=== PATIENT | female | born 1985 | race Caucasian/White ===

== ENCOUNTER → 2020-08-08 14:47 | Outpatient (BNVA) | payer OTHER, SELFPAY | PROVIDERS: PCP Internal Medicine; Visit Provider Advanced Practice Midwife | DX: Z76.89 Persons encountering health services in other specified circumstances (principal) ==

== ENCOUNTER 2020-08-24 15:16 | Outpatient (REF) | payer OTHER, SELFPAY ==
[2020-08-25 11:49] LABS: CT PCR NOT DETECTED (Not Detect.); NG PCR NOT DETECTED (Not Detect.)
== END 2020-08-24 15:17 | disposition home or self-care (01) ==
LOC: HO.LAB 15:16
PROVIDERS: Visit Provider Advanced Practice Midwife
DX: Z20.2 Contact with and (suspected) exposure to infections with a predominantly sexual mode of transmission (principal)
CPT/HCPCS: 87491; 87591

== ENCOUNTER → 2020-09-26 15:16 | Outpatient (BNVA) | payer OTHER, SELFPAY | PROVIDERS: Visit Provider Advanced Practice Midwife | DX: Z76.89 Persons encountering health services in other specified circumstances (principal) ==

== ENCOUNTER → 2021-01-25 15:06 | Outpatient (BNVA) | payer OTHER, SELFPAY | PROVIDERS: PCP Internal Medicine; Visit Provider Advanced Practice Midwife ==

== ENCOUNTER 2021-02-03 10:09 | Outpatient (REF) | payer OTHER, SELFPAY ==
[2021-02-03 11:19] LABS: MANUAL DIFF FLAG NO
[2021-02-03 11:40] LABS: Basophils Percent Auto 0.4 % (0-2); Eosinophils Absolute Auto 0.1 X10*3/uL (0.0-0.4); Eosinophils Percent Auto 0.8 % (0-4); Hematocrit 41.4 % (37-47); Hemoglobin 13.6 g/dl (12.0-16.0); Imm Gran Abs Auto 0.02 X10*3/uL (0.00-0.03); Imm Gran Pct Auto 0.3 % (0.0-0.4); Lymphocytes Percent Auto 27.3 % (20-40); Mean Corpuscular HGB Conc 32.9 g/dl (31.0-35.0); Mean Corpuscular Hemoglobin 29.1 pg (27.0-33.0); Mean Corpuscular Volume 88.5 fL (80-98); Monocytes Absolute Auto 0.3 X10*3/uL (0.1-1.2); Monocytes Percent Auto 4.3 % (2-11); Neutrophils Absolute Auto 4.8 X10*3/uL (2.0-8.3); Neutrophils Percent Auto 66.9 % (45-73); Platelet Count 294 X10*3/uL (160-400); Red Blood Count 4.68 X10*6/uL (4.20-5.50); Red Cell Distribution Width 12.5 % (11.0-16.0); White Blood Count 7.2 X10*3/uL (4.8-10.8)
[2021-02-03 12:09] LABS: Alanine Aminotransferase 29 U/L (0-31); Albumin Level 4.5 g/dL (3.5-5.0); Alkaline Phosphatase 86 U/L (39-117); Anion Gap 13 (12-20); Aspartate Amino Transferase 20 U/L (5-31); Bilirubin Total 0.3 mg/dL (0.0-1.0); Blood Urea Nitrogen 10 mg/dL (9-16); Carbon Dioxide 26 mmol/L (22-29); Chloride 104 mmol/L (96-108); Cholesterol 236 mg/dL; Estimated Glomerular Filt Rate > 60; Glucose Fasting 91 mg/dL (60-99); HDL Cholesterol 37 mg/dL; LDL Cholesterol Calculated 161 mg/dl; Potassium 4.2 mmol/L (3.3-5.1); Sodium 139 mmol/L (135-145); Total Protein 7.6 g/dL (6.5-8.0); Triglycerides 190 mg/dL
[2021-02-03 12:14] LABS: Vitamin D 25-OH Total 16.2 ng/mL (>30)
== END 2021-02-03 10:10 | disposition home or self-care (01) ==
LOC: HO.HMGCLDS 10:09
PROVIDERS: PCP Internal Medicine; Visit Provider Internal Medicine
DX: E78.5 Hyperlipidemia, unspecified (principal); O24.419 Gestational diabetes mellitus in pregnancy, unspecified control; Z00.01 Encounter for general adult medical examination with abnormal findings; Z86.32 Personal history of gestational diabetes; Z87.59 Personal history of other complications of pregnancy, childbirth and the puerperium
CPT/HCPCS: 36415; 80053; 80061; 82306; 84443; 85025

== ENCOUNTER 2021-03-17 14:07 | Outpatient (REF) | payer OTHER, SELFPAY ==
[2021-03-18 11:11] LABS: BV Int Neg Control Negative (Negative); BV Int Pos Control Positive (Positive)
== END 2021-03-17 14:08 | disposition home or self-care (01) ==
LOC: HO.LAB 14:07
PROVIDERS: PCP Internal Medicine; Visit Provider Advanced Practice Midwife
DX: N92.1 Excessive and frequent menstruation with irregular cycle (principal); R10.2 Pelvic and perineal pain; Z97.5 Presence of (intrauterine) contraceptive device
CPT/HCPCS: 87480; 87510; 87660

== ENCOUNTER 2021-03-18 09:38 | Outpatient (REF) | payer OTHER, SELFPAY ==
--- NOTE | ~2021-03-18 | US_ITS ---
EXAMINATION: TRANSABDOMINAL ENDOVAGINAL PELVIC ULTRASOUND CLINICAL INFORMATION: Assess IUD COMPARISON: None TECHNIQUE: As above with color and duplex Doppler FINDINGS: Uterus measures 6.2 x 3.9 x 4.5 cm and is anteverted. Endometrium normal at 8 mm in double or thickness. IUD centered within the endometrial canal without evidence for migration. There is no adnexal lesion. Both ovaries measure normal at 4 mL in volume. Trace physiologic free fluid in the cul-de-sac. US/US pelvic and transvaginal IMPRESSION: IUD satisfactory in position.
== END 2021-03-18 09:39 | disposition home or self-care (01) ==
LOC: HO.US 09:38
PROVIDERS: PCP Internal Medicine; Visit Provider Advanced Practice Midwife
DX: N92.1 Excessive and frequent menstruation with irregular cycle (principal); R10.2 Pelvic and perineal pain; Z97.5 Presence of (intrauterine) contraceptive device
CPT/HCPCS: 76830; 76856

== ENCOUNTER → 2021-03-21 13:46 | Outpatient (BNVA) | payer OTHER, SELFPAY | PROVIDERS: PCP Internal Medicine; Visit Provider Advanced Practice Midwife | DX: Z30.432 Encounter for removal of intrauterine contraceptive device (principal) | CPT/HCPCS: 58301 ==

== ENCOUNTER → 2021-04-10 14:10 | Outpatient (BNVA) | payer OTHER, SELFPAY | PROVIDERS: Visit Provider Advanced Practice Midwife ==

== ENCOUNTER 2022-02-06 09:56 | Outpatient (REF) | payer OTHER, SELFPAY ==
[2022-02-06 11:47] LABS: Alanine Aminotransferase 27 U/L (0-31); Anion Gap 12 (12-20); Aspartate Amino Transferase 20 U/L (5-31); Blood Urea Nitrogen 9 mg/dL (9-16); Calcium 9.7 mg/dL (8.4-10.2); Carbon Dioxide 26 mmol/L (22-29); Chloride 105 mmol/L (96-108); Cholesterol 261 mg/dL; Estimated Glomerular Filt Rate > 60; Glucose Fasting 93 mg/dL (60-99); HDL Cholesterol 47 mg/dL; LDL Cholesterol Calculated 182 mg/dl; Potassium 4.2 mmol/L (3.3-5.1); Sodium 139 mmol/L (135-145); Triglycerides 161 mg/dL
[2022-02-06 12:09] LABS: Vitamin D 25-OH Total 20.6 ng/mL (>30)
[2022-02-06 12:27] LABS: Folate 15.4 ng/mL (> or = 4.0); Vitamin B12 423 pg/mL (200-900)
== END 2022-02-06 09:57 | disposition home or self-care (01) ==
LOC: HO.HMGCLDS 09:56
PROVIDERS: PCP Internal Medicine; Visit Provider Internal Medicine
DX: E78.5 Hyperlipidemia, unspecified (principal); E66.9 Obesity, unspecified; E55.9 Vitamin D deficiency, unspecified; Z86.32 Personal history of gestational diabetes
CPT/HCPCS: 36415; 80048; 80061; 82306; 82607; 82746; 84450; 84460

== ENCOUNTER 2022-12-03 14:17 | Outpatient (REF) | payer OTHER, SELFPAY ==
[2022-12-03 15:08] LABS: Influenza A PCR NEGATIVE (Negative); Influenza B PCR NEGATIVE (Negative); Resp Syncy Virus RNA Qual PCR NEGATIVE (Negative); SARS COV2 PCR INHOUSE NEGATIVE (Negative)
== END 2022-12-03 14:18 | disposition home or self-care (01) ==
LOC: HO.LNP 14:17
PROVIDERS: Visit Provider Physician Assistant
DX: Z20.822 Contact with and (suspected) exposure to COVID-19 (principal)
CPT/HCPCS: 0241U

== ENCOUNTER 2024-01-29 13:02 | Outpatient (AMB) | payer OTHER, SELFPAY ==
--- NOTE | 2024-01-29 13:04 | MHC.OFFVIS ---
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 Doing well with no concerns. She tries to eat healthy and stays active with exercise. Regular monthly menses x 5d. Currently is sexually active. She denies vaginal itching and irritation. STI screening offered; she accepts. Denies family history of breast, ovarian or colon cancer. Last pap smear 2018, negative. [facility] Medical History Mixed dyslipidemia Anxiety as acute reaction to gross stress Vitamin D deficiency Obesity (BMI 30.0-34.9) History of pre-eclampsia History of gestational diabetes Hyperlipidemia Myopia of both eyes History of depression Asthma Surgical History Hx of section Hx of wisdom tooth extraction Family History Mother History of epilepsy Maternal Grandmother Hx of cardiovascular disorder Paternal Grandmother History of breast cancer in female Paternal Aunt History of breast cancer in female Maternal Aunt Hx of diabetes mellitus Asthma Social History Housing: Apartment Alcohol intake: never Patient Tobacco Use Status: Never used Tobacco e-Cigarette/Vaping Use: Never Used service: No Current occupational status: employed Cognitive needs: No Hearing needs: No Vision needs: No Female Reproductive History Menstrual Age of Menarche: 15 Date of last menstrual period: 01/03/24 control method: none, natural family planning, condoms and other (withdrawal method) Total pregnancies: 1 Full term: 1 Number of Living Children: 1 Date of last pap smear: 01/21/18 (neg pap and hpv) Review of Systems Const All systems reviewed & are unremarkable except as noted in HPI and below Reports as per HPI Eyes Reports no additional complaints ENT Reports no additional complaints Card Reports no additional complaints Resp Reports no additional complaints GI Reports as per HPI and Reports no additional complaints Reports as per HPI Musc Reports no additional complaints Skin/Breast Reports as per HPI Neuro Reports no additional complaints Psych Reports no additional complaints Endo Reports no additional complaints Lino/Lymph Reports no additional complaints Aller/Immun Reports no additional complaints Physical Exam Vital Signs: Last Vital Signs BP 100/66 01/29/24 13:05 BMI result Body Mass Index 30.6 Const General: cooperative, healthy appearing, no acute distress, well developed and alert Orientation/consciousness: patient oriented x3 HEENT Head: Yes normal to inspection Eyes General: appearance normal, both eyes and all related structures Neck Neck: Yes normal visual inspection Thyroid: Thyroid normal Chest Chest palpation & inspection: normal inspection of the chest and other (no puckering, dimpling, peau de orange, retraction, discharge, masses) Breast/axilla inspection: normal inspection of the breasts Breast/axilla palpation: normal palpation of the breasts Resp Effort & Inspection: normal respiratory effort GI Inspection: Yes normal to inspection Palpation (GI): Soft to palpation Rectal Exam - Female: deferred General: Yes bladder normal to palpation External Female Exam: normal external appearance and normal appearance of the urethra Speculum Exam - Vagina: normal appearance of the vagina, normal palpation and normal vaginal discharge Speculum Exam - Cervix: normal appearance of the cervix, normal palpation, Nabothian cyst present and Other cervical findings present (Bled slightly with Pap) Bimanual exam- vagina & uterus: normal bimanual exam, normal palpation, uterine size normal, bladder normal to palpation, normal palpation and non-tender Bimanual Exam- Adnexa, other: no masses Skin General skin exam: no rashes or lesions noted Rashes: no rashes Neuro General: patient oriented x3 Cognition (Neuro): normal cognition Extrem General: Yes normal to inspection Psych Attitude: cooperative Thought process: Normal thought process present Assessment & Plan Assessment & Plan (1) Encounter for well woman exam with routine gynecological exam: Code(s): Z01.419 - Encounter for gynecological examination (general) (routine) without abnormal findings Plan Discussed: Current recommendations for pap smears per ASCCP guidelines. Breast awareness and periodic breast exams. Maintain a healthy lifestyle including a well balanced diet and routine exercise. Use condoms for prevention. Return to the office if you want to consider control for consult. Patient verbalizes understanding and agrees to the plan of care. She was given opportunity to ask questions and all questions were answered to the best of my ability. 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 This note is constructed using voice recognition software. While every effort has been made to ensure accuracy, form grader operator errors may have been included. Coding Level of Care Code Est Pt Prev Care 18-39y(18171) Diagnoses Encounter for well woman exam with routine gynecological exam Z01.419
[2024-01-29 13:05] VITALS: BP 100/66; BMI 30.6
== END 2024-01-29 13:48 | disposition home or self-care (01) ==
PROVIDERS: PCP Internal Medicine; Visit Provider Advanced Practice Midwife
DX: Z01.419 Encounter for gynecological examination (general) (routine) without abnormal findings (principal)
CPT/HCPCS: 99395

== ENCOUNTER 2024-01-29 13:02 | Outpatient (REF) | payer OTHER, SELFPAY ==
[2024-02-05 03:29] LABS: HPV mRNA E6/E7 rflx Not Detected (Not Detected)
== END 2024-01-29 13:03 | disposition home or self-care (01) ==
LOC: HO.LNP 13:02
PROVIDERS: PCP Internal Medicine; Visit Provider Advanced Practice Midwife
DX: Z01.419 Encounter for gynecological examination (general) (routine) without abnormal findings (principal); Z11.51 Encounter for screening for human papillomavirus (HPV)
CPT/HCPCS: 87624; 88142

== ENCOUNTER 2025-04-29 12:49 | Outpatient (AMB) | payer BC, SELFPAY ==
--- NOTE | 2025-04-29 12:55 | MHC.PC.OV ---
Vital Signs 04/29/25 13:14 Height 5 ft 2 in Weight 155 lb BMI 28.3 BP 102/62 Blood Pressure Location Lt brachial Position Sitting Respiration 16 Pulse 75 Pulse Source Pulse Oximeter Temp 98.2 F Temp Source Oral Pulse Oximetry (%) 95 Oxygen Delivery Method Room Air Intake Visit Reasons: PE to re-est care Intake Note: Pt is here today for her PE to re-est care: last papsmear 01/29/24 [facility] Allergies No Known Allergies Allergy (Verified 04/29/25 13:30) Medication List - Last Reconciled 04/29/25 by Vandana Augustine MD No Known Home Meds Tobacco use date assessed: 04/29/25 Dental Screening Dental Screen Date: 04/29/25 Did you have a dental visit in the last 12 months?: Yes Did you have a dental problem in the last 6 months where you did not have access to dental care?: No Was dental information given to patient?: Patient has dentist HPI PE to re-est care HPI Details 39-year-old lady with history of mixed dyslipidemia, here today for her physical exam. She goes to [facility] for her routine Pap and pelvic exam, last done in 2023 with negative findings. She has lost weight after delivery of her 2nd child, through adhering to healthy eating habits and getting regular exercise. She is still her 2nd child. [facility] History (Updated 04/29/25 @ 13:39 by Vandana Augustine MD) Mixed dyslipidemia Vitamin D deficiency Obesity (BMI 30.0-34.9) History of pre-eclampsia History of gestational diabetes Myopia of both eyes History of depression Surgical History (Updated 04/29/25 @ 13:44 by Vandana Augustine MD) History of bilateral tubal ligation Hx of section Hx of wisdom tooth extraction Family History Mother History of epilepsy Maternal Grandmother Hx of cardiovascular disorder Paternal Grandmother History of breast cancer in female Paternal Aunt History of breast cancer in female Maternal Aunt Hx of diabetes mellitus Asthma Social History Housing: Apartment Alcohol intake: never Patient Tobacco Use Status: Never used Tobacco e-Cigarette/Vaping Use: Never Used service: No Current occupational status: employed Cognitive needs: No Hearing needs: No Vision needs: Yes Female Reproductive History Menstrual Age of Menarche: 15 Questionnaire PHQ-9 Over the last 2 weeks, how often have you been bothered by any of the following problems? 1. Little interest or pleasure in doing things: not at all 2. Feeling down, depressed, or hopeless: not at all 3. Trouble falling or staying asleep, or sleeping too much: not at all 4. Feeling tired or having little energy: several days 5. Poor appetite or overeating: not at all 6. Feeling bad about yourself - or that you are a failure or have let yourself or your family down: not at all 7. Trouble concentrating on things, such as reading the newspaper or watching television: not at all 8. Moving or speaking so slowly that other people could have noticed. Or the opposite - being so fidgety or restless that you have been moving around a lot more than usual: not at all 9. Thoughts that you would be better off or of hurting yourself in some way: not at all Total score: 1 Depression Screening Interpretation: Negative Depression Screening Done: Yes 37780 - PHQ-9 Billing: Yes Source: Developed by Drs. Giovany Conley, Vivian Bocanegra, Venu Varner and colleagues, with an educational pedro from [employer]. Thrive Questionnaire Date Thrive assessed: 04/29/25 I am a: Patient What is your living situation today?: I have a steady place to live Within the past 12 months, did the food you bought not last and you didn't have the money to get more?: Never true Within the past 12 months, did you worry whether your food would run out before you got money to buy more?: Never true Do you have trouble paying for medicines?: No Do you have trouble getting transportation to medical appointments?: No Do you have trouble paying your heating and electricity bill?: No Do you have trouble taking care of your child, family member or friend?: No Do you have trouble with day-to-day activities such as bathing, preparing meals, shopping, managing finances, etc.?: No Are you currently unemployed and looking for a job?: No Are you interested in more education?: No Please select the resources that you would like help with: None Currently or been in a relationship where the following occur: I choose not to answer THRIVE Score: 0 AUDIT C Alcohol Use Questionnaire (AUDIT-C) 1. How often do you have a drink containing alcohol?: Never Total Score: 0 CHALO-7 AMB Questionnaire CHALO-7 Date CHALO - 7 assessed: 04/29/25 Feeling nervous, anxious, or on edge: 0 = Not at all Not being able to stop or control worryin = Not at all Worrying too much about different things: 0 = Not at all Trouble relaxin = Not at all Being so restless that it is hard to sit still: 0 = Not at all Becoming easily annoyed or irritable: 0 = Not at all Feeling afraid as if something awful might happen: 0 = Not at all Total CHALO-7 score (0-4 normal; 5-9 mild; 10-14 moderate; 15-21 severe): 0 Source: Developed by Drs. Giovany Conley, Vivian Bocanegra, Venu Varner and colleagues, with an educational pedro from [employer]. Review of Systems Const Reports no additional complaints Eyes Details: Has myopia, wears glasses, goes to [facility] ENT Details: Dental prophylaxis every 6 months Reports no additional complaints Card Reports no additional complaints Resp Reports no additional complaints GI Reports as per HPI and Reports no additional complaints Reports no additional complaints Musc Reports no additional complaints Skin/Breast Details: Currently , six-months Denies breast pain, Denies breast mass, Denies rash and Denies wounds Neuro Reports no additional complaints Psych Reports no additional complaints Endo Reports no additional complaints Lino/Lymph Reports no additional complaints Aller/Immun Reports no additional complaints Physical exam (Primary Care) Vital Signs: Last Vital Signs Temp 98.2 F 04/29/25 13:14 Pulse 75 04/29/25 13:14 Resp 16 04/29/25 13:14 BP 102/62 04/29/25 13:14 Pulse Ox 95 04/29/25 13:14 Oxygen Delivery Method Room Air 04/29/25 13:14 BMI result Body Mass Index 28.3 Tobacco/Smoking Status: Tobacco use Status Tobacco use date assessed 04/29/25 04/29/25 12:59 Patient Tobacco Use Status Never used Tobacco 04/29/25 12:56 e-Cigarette/Vaping Use Never Used 04/29/25 12:56 PHQ-9: PHQ-9 Score PHQ-9: Total score 1 04/29/25 13:30 Depression Screening Interpretation: Negative Thrive Assessment: Date of Thrive Assessment Date Thrive assessed 04/29/25 04/29/25 12:59 Currently or been in a relationship where the following occur: I choose not to answer Advance Care Planning discussion: Completed/Scanned Date of discussion: 04/29/25 Who was present: Patient Forms completed: Health Care Proxy Time spent: 16-45 minutes Actual minutes spent: 3 Const General: comfortable, no acute distress and alert Nutritional Appearance: overweight (Has lost weight with doing the Mediterranean diet) Orientation/consciousness: patient oriented x3 Limitations: no limitations HENMT Head: Yes normocephalic and Yes atraumatic Ears: external ears normal and Abnormal EAC present excessive cerumen bilateral General nose exam: Normal external nose present and No nasal discharge present Face and sinus: Yes face symmetric Mouth: Normal oral and palatal mucosa present and moist mucous membranes Eyes General: appearance normal, both eyes and all related structures Neck Neck: Yes full ROM, Yes no lymphadenopathy and Yes supple Thyroid: Thyroid normal Chest Breast/axilla palpation: normal palpation of the breasts Resp Auscultation: clear to auscultation bilaterally Cardio Other: S1-S2 present regular rate and rhythm GI Inspection: Yes normal to inspection and Yes scar (Well-healed Pfannenstiel scar) Palpation (GI): Soft to palpation, nontender, no guarding and no masses Other: Sees [facility] Back/Spine/Pelvis Back: No back tenderness Skin General skin exam: no rashes or lesions noted Neuro General: patient oriented x3, gait normal, tone normal, moves all extremities, Normal light touch and pain sensation, no focal motor deficits and CN's II-XI intact bilaterally Extrem General: Yes full ROM, Yes no joint enlargement, Yes no pedal edema, Yes no calf tenderness and Yes normal gait Psych Appearance: grossly normal and well kempt Speech and movement: Normal speech and movement present Affect: normal affect Thought process: Normal thought process present Coding Level of Care Code New Pt Prev Care 18-39yr(38958 Diagnoses Annual visit for general adult medical examination with abnormal findings Z00.01 History of gestational diabetes Z86.32 History of pre-eclampsia Z87.59 Vitamin D deficiency E55.9 Mixed dyslipidemia E78.2 Myopia of both eyes H52.13 Advanced directives, counseling/discussion Z71.89 Additional Codes PHQ-9 - 05523 - PHQ-9 Billing: Yes ([id number]) Vital Signs *Quality* - Advance Care Planning discussion: Completed/Scanned ([id number]) Vital Signs *Quality* - Time spent: 16-45 minutes ([id number]) Assessment & Plan Assessment & Plan (1) Annual visit for general adult medical examination with abnormal findings: Code(s): Z00.01 - Encounter for general adult medical examination with abnormal findings Plan: Will check appropriate labs. Continue regular dental visit every 6 months and regular eye exams, at least every 2 years, currently sees [facility] Take adequate calcium in diet and vitamin-D 3 at 2000 IU per cap once a day, in addition to weight-bearing exercises to help maintain good muscle tone and weight control. Instructed to do self-breast exam, and recommended to get yearly mammogram, starting at age 40. Currently goes to [facility] for routine Pap and pelvic exam. Up-to-date with her Tdap, and gets yearly flu vaccine. (2) History of gestational diabetes: Code(s): Z86.32 - Personal history of gestational diabetes Category: Medical Plan: Will check fasting blood sugar levels. Continue with following Mediterranean diet and regular exercise at least 30 minutes 3 to 4 times a week (3) History of pre-eclampsia: Code(s): Z87.59 - Personal history of other complications of , childbirth and the puerperium Category: Medical Plan: Blood pressure stable and controlled with current diet, follows Mediterranean diet and gets regular exercise (4) Vitamin D deficiency: Code(s): E55.9 - Vitamin D deficiency, unspecified Category: Medical Plan: Will check vitamin-D level (5) Mixed dyslipidemia: Code(s): E78.2 - Mixed hyperlipidemia Category: Medical Plan: Continue with following Mediterranean diet (6) Myopia of both eyes: Comment: UTD with eye exam , goes to [facility] Code(s): H52.13 - Myopia, bilateral Category: Medical Plan: Currently goes to [facility] (7) Advanced directives, counseling/discussion: Code(s): Z71.89 - Other specified counseling Plan: Initiated the conversation about Advanced Directives. Advanced Directives help patients prepare for current and future decisions about their medical treatment and place of care. Discussed with patient that it is a process where a patients current condition and prognosis are reviewed, their wishes for information regarding their illness are elicited, and likely medical dilemmas are presented and options discussed. Healthcare proxy form completed today. The form can be amended as needed, reviewed yearly and make changes as needed Orders: Orders Vitamin D 25-OH Total Today E55.9 - Vitamin D deficiency, unspecified, E78.2 - Mixed hyperlipidemia, Z00.01 - Encounter for general adult medical examination with abnormal findings, Z86.32 - Personal history of gestational diabetes, Z87.59 - Personal history of other complications of , childbirth and the puerperium Complete Blood Count Auto Diff Today E55.9 - Vitamin D deficiency, unspecified, E78.2 - Mixed hyperlipidemia, Z00.01 - Encounter for general adult medical examination with abnormal findings, Z86.32 - Personal history of gestational diabetes, Z87.59 - Personal history of other complications of , childbirth and the puerperium Lipid Panel Today E55.9 - Vitamin D deficiency, unspecified, E78.2 - Mixed hyperlipidemia, Z00.01 - Encounter for general adult medical examination with abnormal findings, Z86.32 - Personal history of gestational diabetes, Z87.59 - Personal history of other complications of , childbirth and the puerperium Basic Metabolic Panel Fasting Today E55.9 - Vitamin D deficiency, unspecified, E78.2 - Mixed hyperlipidemia, Z00.01 - Encounter for general adult medical examination with abnormal findings, Z86.32 - Personal history of gestational diabetes, Z87.59 - Personal history of other complications of , childbirth and the puerperium Aspartate Amino Transferase Today E55.9 - Vitamin D deficiency, unspecified, E78.2 - Mixed hyperlipidemia, Z00.01 - Encounter for general adult medical examination with abnormal findings, Z86.32 - Personal history of gestational diabetes, Z87.59 - Personal history of other complications of , childbirth and the puerperium Alanine Aminotransferase Today E55.9 - Vitamin D deficiency, unspecified, E78.2 - Mixed hyperlipidemia, Z00.01 - Encounter for general adult medical examination with abnormal findings, Z86.32 - Personal history of gestational diabetes, Z87.59 - Personal history of other complications of , childbirth and the puerperium Hemoglobin A1c Today Z86.32 - Personal history of gestational diabetes
[2025-04-29 13:14] VITALS: BP 102/62; PULSE 75; RESP 16; TEMP 36.8; O2SAT 95; BMI 28.3
--- OUTSIDE RECORDS SUMMARY | 2025-04-29 15:15 | XMS_ITS | Clinical Summary ---
Author Organization [facility] ity Address [address] [place] [address] Care Team Providers Care Fence Installer Helper Name Role Phone Unavailable Primary Care Provider Unavailabl e Surgical History Surgery Date Site/Laterality Comments WISDOM TOOTH EXTRACTION PROCEDURE: HISTORICAL WISDOM TEETH EXTRACTION Medical History Medical History Date Comments Asthma DX:Asthma Family History Medical History Relation Name Comments Other: kidney failure Maternal Grandfather Breast cancer Paternal Grandmother Relation Name Status Comments Father Alive Maternal Grandfather Maternal Grandmother Alive Mother Alive Paternal Grandfather Paternal Grandmother Sister 1 Alive Sister 2 Alive Social History Tobacco Use Types Packs/Day Years Used Date Smoking Tobacco: Never Smokeless Tobacco: Never Alcohol Use Standard Drinks/Week Comments No 0 (1 standard drink = 0.6 oz pur e alcohol) Comments Unknown Sex and Gender Information Value Date Recorded Sex Assigned at Not on file Legal Sex Female 9:07 AM EST Gender Identity Not on file Sexual Orientation Not on file Obstetrics History Plan of Treatment Health Maintenance Due Date Last Done Comments DTaP,Tdap,and Td Vaccines (1 - Tdap) 2006 Hepatitis B Vaccines (1 of 3 - 19+ 3-dose series) 2006 Cervical Cancer Screening: P ap Smear 2008 COVID-19 Vaccine (2023-2 5 season) 2024 Influenza Vaccine (Season Ended) 2025 HIB Vaccines Aged Out No longer eligi ble based on patient's age to complete this topic HPV Vaccines Aged Out No longer eligi ble based on patient's age to complete this topic Hepatitis A Vaccines Aged Out No long er eligible based on patient's age to complete this topic IPV Vaccines Aged Out No longer eligi ble based on patient's age to complete this topic MMR Vaccines Aged Out No longer eligi ble based on patient's age to complete this topic Meningococcal ACWY Vaccine Aged Out N o longer eligible based on patient's age to complete this topic Meningococcal B Vaccine Aged Out No l onger eligible based on patient's age to complete this topic Pneumococcal Vaccine: Pediat rics (0 to 5 Years) and At-Risk Patients (6 to 64 Years) Aged Out No longer eligible b ased on patient's age to complete this topic RSV Immunization Patients Un manju 20 months Aged Out No longer eligible b ased on patient's age to complete this topic Varicella Vaccines Aged Out No longer eligible based on patient's age to complete this topic
== END 2025-04-29 13:55 | disposition home or self-care (01) ==
LOC: HO.HMCC 12:50
PROVIDERS: PCP Internal Medicine; Visit Provider Internal Medicine
DX: Z00.01 Encounter for general adult medical examination with abnormal findings (principal); Z86.32 Personal history of gestational diabetes; Z87.59 Personal history of other complications of pregnancy, childbirth and the puerperium; E55.9 Vitamin D deficiency, unspecified; E78.2 Mixed hyperlipidemia; H52.13 Myopia, bilateral; Z71.89 Other specified counseling; Z00.00 Encounter for general adult medical examination without abnormal findings

== ENCOUNTER → 2025-04-29 12:49 | Outpatient (BNVA) | payer BC, SELFPAY | PROVIDERS: PCP Internal Medicine; Visit Provider Internal Medicine | DX: Z00.00 Encounter for general adult medical examination without abnormal findings (principal); E78.2 Mixed hyperlipidemia; E55.9 Vitamin D deficiency, unspecified; H52.13 Myopia, bilateral; Z71.89 Other specified counseling; Z86.32 Personal history of gestational diabetes; Z87.59 Personal history of other complications of pregnancy, childbirth and the puerperium | CPT/HCPCS: 96127 ==

== ENCOUNTER 2025-05-03 08:41 | Outpatient (REF) | payer BC, SELFPAY ==
--- OUTSIDE RECORDS SUMMARY | 2025-05-03 08:50 | XMS_ITS | Clinical Summary ---
Author Organization [facility] ity Address [address] [place] [address] Care Team Providers Care Training Mgr Name Role Phone Unavailable Primary Care Provider [...]
[2025-05-03 10:13] LABS: MANUAL DIFF FLAG NO
[2025-05-03 10:29] LABS: Estimated Average Glucose 103 mg/dL; Hemoglobin A1c % 5.2 % (<6.0)
[2025-05-03 10:34] LABS: Basophils Percent Auto 0.4 % (0-2); Eosinophils Absolute Auto 0.1 X10*3/uL (0.0-0.4); Eosinophils Percent Auto 2.2 % (0-4); Hematocrit 39.1 % (37.0-47.0); Hemoglobin 12.8 g/dl (12.0-16.0); Imm Gran Abs Auto 0.03 X10*3/uL (0.00-0.03); Imm Gran Pct Auto 0.7 % (0.0-0.4); Lymphocytes Absolute Auto 1.5 X10*3/uL (1.2-4.9); Lymphocytes Percent Auto 32.2 % (20-40); Mean Corpuscular HGB Conc 32.7 g/dl (31.0-35.0); Mean Corpuscular Hemoglobin 28.8 pg (27.0-33.0); Mean Corpuscular Volume 87.9 fL (80.0-98.0); Mean Platelet Volume 10.6 fL (9.4-12.3); Monocytes Absolute Auto 0.2 X10*3/uL (0.1-1.2); Monocytes Percent Auto 5.1 % (2-11); Neutrophils Absolute Auto 2.7 x10*3/uL (2.0-8.3); Neutrophils Percent Auto 59.4 % (45-73); Platelet Count 222 X10*3/uL (160-400); Red Blood Count 4.45 X10*6/uL (4.20-5.50); Red Cell Distribution Width 12.7 % (11.0-16.0); White Blood Count 4.5 X10*3/uL (4.8-10.8)
[2025-05-03 10:58] LABS: Alanine Aminotransferase 22 U/L (0-31); Anion Gap 10 (12-20); Aspartate Amino Transferase 25 U/L (5-31); Blood Urea Nitrogen 12 mg/dL (9-16); Calcium 9.1 mg/dL (8.4-10.2); Carbon Dioxide 26 mmol/L (22-29); Chloride 110 mmol/L (96-108); Cholesterol 240 mg/dL (<200); Estimated Glomerular Filt Rate > 60; Glucose Fasting 85 mg/dL (60-99); HDL Cholesterol 66 mg/dL (>40); LDL Cholesterol Calculated 159 mg/dL (<100); Sodium 142 mmol/L (135-145); Triglycerides 76 mg/dL (<150)
== END 2025-05-03 08:42 | disposition home or self-care (01) ==
LOC: HO.HMGCLDS 08:41
PROVIDERS: PCP Internal Medicine; Visit Provider Internal Medicine
DX: Z00.01 Encounter for general adult medical examination with abnormal findings (principal); E78.2 Mixed hyperlipidemia; E55.9 Vitamin D deficiency, unspecified; Z86.32 Personal history of gestational diabetes; Z87.59 Personal history of other complications of pregnancy, childbirth and the puerperium
CPT/HCPCS: 36415; 80048; 80061; 82306; 83036; 84450; 84460; 85025